=== PATIENT | female | born 1950 | race American Indian/Alaskan Native ===

== ENCOUNTER 2016-08-15 13:44 | Emergency (ER) | payer MEDICARE, MEDICAID ==
[2016-08-15 14:15] VITALS: BP 133/58
--- NOTE | 2016-08-15 16:00 | EDM.PDOC ---
ED HPI EYE COMPLAINT - General Chief Complaint: Eye Problems Stated Complaint: LEFT EYE VISUAL DISTURBANCE Time Seen by Provider: 08/15/16 15:55 Source: Reports: Patient, RN notes reviewed History Limitations: Reports: No limitations - History of Present Illness INITIAL COMMENTS - FREE TEXT/NARRATIVE: 65-year-old female presents emergency department day complaint of decreased vision in her left eye she is also having pain below her left side that radiates to the back of her left ear she describes the vision as intermittent with spots, does have a history of retinal hemorrhage - Related Data Allergies/ADRs: Allergies celecoxib [From Celebrex] Allergy (Verified 08/15/16 14:04) Cannot Remember codeine Allergy (Verified 08/15/16 14:04) Nausea and Vomiting metoclopramide HCl [From Reglan] Allergy (Verified 08/15/16 14:04) Cannot Remember metronidazole [From Flagyl] Allergy (Verified 08/15/16 14:04) Cannot Remember morphine Allergy (Verified 08/15/16 14:04) Cannot Remember nitrofurantoin [From Macrobid] Allergy (Verified 08/15/16 14:04) Cannot Remember nitrofurantoin macrocrystalline [From Macrobid] Allergy (Verified 08/15/16 14:04 ) Cannot Remember Penicillins Allergy (Verified 08/15/16 14:04) Cannot Remember rofecoxib Allergy (Verified 08/15/16 14:04) Cannot Remember shellfish derived Allergy (Verified 08/15/16 14:04) Cannot Remember Sulfa (Sulfonamide Antibiotics) Allergy (Verified 08/15/16 14:04) Hives Home Meds: Ambulatory Orders Medication Instructions Recorded Confirmed Carvedilol [Coreg] 1 tab PO BID 11/09/15 08/15/16 Clopidogrel [Plavix] 1 tab PO DAILY 11/09/15 08/15/16 Simvastatin [Zocor] 20 mg PO DAILY 11/09/15 08/15/16 cloNIDine [Catapres] 1 tab PO BID 11/09/15 08/15/16 hydrOXYzine HCl [hydrOXYzine] 25 mg PO QID PRN 11/09/15 08/15/16 Calcium Carbonate [Tums] 1,000 mg PO TID 08/15/16 08/15/16 Folic Acid/Vitamin B Comp W-C 1 tab PO DAILY 08/15/16 08/15/16 [Dialyvite] traMADol [Ultram] 1 tab PO BID PRN 08/15/16 08/15/16 Past Medical History HEENT History: Reports: Cataract Respiratory History: Reports: COPD Genitourinary History: Reports: Dialysis, UTI, recurrent Musculoskeletal History: Reports: Fracture Neurological History: Reports: TIA Endocrine/Metabolic History: Reports: Diabetes, type II - Infectious Disease History Infectious Disease History: Reports: Chicken pox, Measles, Mumps - Past Surgical History Cardiovascular Surgical History: Reports: Coronary artery bypass, Coronary artery stent Musculoskeletal Surgical History: Reports: Arthroscopic knee Social & Family History - Tobacco Use Smoking Status *Q: Never Smoker Second Hand Smoke Exposure: No - Caffeine Use Caffeine Use: Reports: Coffee - Recreational Drug Use Recreational Drug Use: No ED ROS GENERAL - Review of Systems Review Of Systems: See Below Constitutional: Reports: no symptoms HEENT: Reports: Ear pain, Eye pain Respiratory: Reports: No Symptoms Cardiovascular: Reports: No symptoms GI/Abdominal: Reports: No symptoms : Reports: no symptoms Musculoskeletal: Reports: no symptoms Skin: Reports: no symptoms Neurological: Reports: No Symptoms ED EXAM GENERAL W FULL EYE - Physical Exam Exam: See Below Exam Limited By: No limitations General Appearance: alert, WD/WN, no apparent distress Eye Exam: left eye: normal fundi (Could not appreciate the optic disc), vision changes, bilateral eye: EOMI, normal inspection, PERRL Visual acuity (L) 20/: 200 With Correction: No Eyelids: bilateral: normal appearance Conjunctiva & Sclera: bilateral: normal appearance Extraocular Movements: bilateral: intact Pupillary Size: bilateral: 3 mm Pupillary Reaction: bilateral: brisk Anterior Chamber: bilateral: normal appearance Posterior Chamber: left: normal funduscopic (Could not appreciate optic disc) Ears: normal external exam, normal canal, hearing grossly normal, normal TMs Nose: normal inspection, normal mucosa, no blood Throat/Mouth: Normal inspection, Normal lips, Normal teeth, Normal gums, Normal oropharynx, Normal voice, No airway compromise Head: atraumatic, normocephalic Neck: normal inspection, supple, non-tender, full range of motion Respiratory/Chest: no respiratory distress, lungs clear, normal breath sounds, no accessory muscle use Cardiovascular: regular rate, rhythm, no murmur GI/Abdominal: soft, non tender Course - Vital Signs Last Recorded V/S: Last Vital Signs Temp 96.6 F 08/15/16 14:06 Pulse 55 L 08/15/16 14:06 Resp 18 08/15/16 14:06 BP 133/58 L 08/15/16 14:06 Pulse Ox 94 L 08/15/16 14:06 Departure - Departure Time of Disposition: 16:12 Disposition: DC/Tfer to Acute Hospital 02 Condition: fair Clinical Impression: Vision changes Forms: ED Department Discharge Additional Instructions: Please report to the [facility] eye clinic [id number] to the [facility] [address] cell phone number of Dr. Merino [phone] - Assessment/Plan Plan: Assessment Acuity = acute Site and laterality = change in vision left eye palpated patient with diabetes and end-stage renal disease on dialysis Etiology = unclear etiology Manifestations = loss of vision Location of injury = home Lab values = none Plan Called discussed case with Dr. 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 This note was dictated using [employer] voice recognition software please call with any questions.
== END 2016-08-15 16:24 ==
LOC: JP.ED 13:44
DX: H53.9 Unspecified visual disturbance (principal); J44.9 Chronic obstructive pulmonary disease, unspecified; Z87.440 Personal history of urinary (tract) infections; E11.9 Type 2 diabetes mellitus without complications; Z95.1 Presence of aortocoronary bypass graft; Z88.8 Allergy status to other drugs, medicaments and biological substances; Z88.0 Allergy status to penicillin; Z88.2 Allergy status to sulfonamides; Z79.899 Other long term (current) drug therapy; Z86.73 Personal history of transient ischemic attack (TIA), and cerebral infarction without residual deficits; Z91.013 Allergy to seafood; Z88.5 Allergy status to narcotic agent
CPT/HCPCS: 99283; 99285

== ENCOUNTER 2017-04-30 21:38 | Emergency (ER) | payer MEDICARE, MEDICAID ==
--- NOTE | 2017-04-30 22:22 | EDM.PDOC ---
ED HPI GENERAL MEDICAL PROBLEM - General Chief Complaint: Genitourinary Problem Stated Complaint: NOT FEELING WELL Time Seen by Provider: 04/30/17 22:00 Source of Information: Reports: Patient, Family History Limitations: Reports: No Limitations - History of Present Illness INITIAL COMMENTS - FREE TEXT/NARRATIVE: 66-year-old female on chronic dialysis fistula dialysis run on Monday and now she's not feeling well. She was hoping to get dialysis tomorrow but discovered tomorrow was a government holiday, she receives dialysis at a government facility. She doesn't think she can wait till Monday. Onset: Gradual (Over the past 2-3 days) Severity: Moderate Associated Symptoms: Reports: Malaise, Weakness. Denies: Fever/Chills, Headaches - Related Data Allergies Allergy/AdvReac Type Severity Reaction Status Date / Time celecoxib [From Celebrex] Allergy Cannot Verified 04/30/17 22:24 Remember codeine Allergy Nausea and Verified 04/30/17 22:24 Vomiting metoclopramide HCl Allergy Cannot Verified 04/30/17 22:24 [From Reglan] Remember metronidazole [From Flagyl] Allergy Cannot Verified 04/30/17 22:24 Remember morphine Allergy Cannot Verified 04/30/17 22:24 Remember nitrofurantoin Allergy Cannot Verified 04/30/17 22:24 [From Macrobid] Remember nitrofurantoin Allergy Cannot Verified 04/30/17 22:24 macrocrystalline Remember [From Macrobid] Penicillins Allergy Cannot Verified 04/30/17 22:24 Remember rofecoxib Allergy Cannot Verified 04/30/17 22:24 Remember shellfish derived Allergy Cannot Verified 04/30/17 22:24 Remember Sulfa (Sulfonamide Allergy Hives Verified 04/30/17 22:24 Antibiotics) Home Meds: Home Meds Carvedilol [Coreg] 1 tab PO BID 11/09/15 [History] Clopidogrel [Plavix] 1 tab PO DAILY 11/09/15 [History] Simvastatin [Zocor] 20 mg PO DAILY 11/09/15 [History] cloNIDine [Catapres] 1 tab PO BID 11/09/15 [History] hydrOXYzine HCl [hydrOXYzine] 25 mg PO QID PRN 11/09/15 [History] Calcium Carbonate [Tums] 1,000 mg PO TID 08/15/16 [History] Losartan [Cozaar] 04/30/17 [History] Past Medical History HEENT History: Reports: Cataract Respiratory History: Reports: COPD Genitourinary History: Reports: Dialysis, UTI, Recurrent Musculoskeletal History: Reports: Fracture Neurological History: Reports: TIA Endocrine/Metabolic History: Reports: Diabetes, Type II - Infectious Disease History Infectious Disease History: Reports: Chicken Pox, Measles, Mumps - Past Surgical History Cardiovascular Surgical History: Reports: Coronary Artery Bypass, Coronary Artery Stent Musculoskeletal Surgical History: Reports: Arthroscopic Knee Social & Family History - Tobacco Use Smoking Status *Q: Never Smoker Second Hand Smoke Exposure: No - Caffeine Use Caffeine Use: Reports: Coffee - Recreational Drug Use Recreational Drug Use: No ED ROS GENERAL - Review of Systems Review Of Systems: See Below Constitutional: Reports: Malaise, Weakness. Denies: Fever, Chills HEENT: Reports: No Symptoms Respiratory: Denies: Shortness of Breath Cardiovascular: Denies: Chest Pain, Palpitations GI/Abdominal: Reports: Nausea. Denies: Vomiting Neurological: Reports: Dizziness ED EXAM, RENAL/ - Physical Exam Exam: See Below Exam Limited By: No Limitations General Appearance: Alert, No Apparent Distress Eye Exam: Bilateral Eye: EOMI, Normal Inspection Respiratory/Chest: No Respiratory Distress, Lungs Clear Cardiovascular: Regular Rate, Rhythm Neurological: Alert, Oriented Psychiatric: Flat Affect Skin Exam: Warm, Dry Course - Vital Signs Last Recorded V/S: Last Vital Signs Temp 96.3 F 04/30/17 23:27 Pulse 52 L 04/30/17 23:27 Resp 18 04/30/17 23:27 BP 177/55 H 04/30/17 23:27 Pulse Ox 98 04/30/17 23:27 - Orders/Labs/Meds Labs: Laboratory Tests 04/30/17 04/30/17 Range/Units 22:25 22:25 WBC 7.8 (4.5-11.0) K/uL RBC 3.17 L (3.30-5.50) M/uL Hgb 8.8 L D (12.0-15.0) g/dL Hct 26.5 L (36.0-48.0) % MCV 84 (80-98) fL MCH 28 (27-31) pg MCHC 33 (32-36) % Plt Count 237 (150-400) K/uL Neut % (Auto) 70 H (36-66) % Lymph % (Auto) 20 L (24-44) % Rabun % (Auto) 9 H (2-6) % Eos % (Auto) 1 L (2-4) % Baso % (Auto) 0 (0-1) % Sodium 134 L (140-148) mmol/L Potassium 5.4 H (3.6-5.2) mmol/L Chloride 92 L (100-108) mmol/L Carbon Dioxide 25 (21-32) mmol/L Anion Gap 22.4 H (5.0-14.0) mmol/L BUN 75 H (7-18) mg/dL Creatinine 8.8 H* D (0.6-1.0) mg/dL Est Cr Clr Drug Dosing 5.43 mL/min Estimated GFR (MDRD) 5 L (>60) Glucose 122 H (74-106) mg/dL Calcium 8.6 (8.5-10.1) mg/dL - Re-Assessments/Exams Free Text/Narrative Re-Assessment/Exam: 04/30/17 22:28 CBC and BMP were obtained. 04/30/17 23:11 BMP revealed a BUN of 75, creatinine 8.8 and potassium of 5.4. [facility] was called and the hospitalist service kindly accepted the patient. She 'll be transferred by EMS as no family members with the patient are able to take her. Departure - Departure Time of Disposition: 23:38 Disposition: DC/Tfer to Other Condition: Fair Clinical Impression: Renal failure Qualifiers: Renal failure chronicity: acute on chronic Acute renal failure type: unspecified Chronic kidney disease stage: on chronic dialysis Qualified Code(s) : N17.9 - Acute kidney failure, unspecified - Discharge Information Referrals: PCP,None [Primary Care Provider] - Forms: ED Department Discharge Care Plan Goals: Patient is to be transferred to [facility] for dialysis treatment.
[2017-04-30 23:28] VITALS: BP 177/55
== END 2017-04-30 23:41 | disposition other institution (70) ==
LOC: JP.ED 21:38
DX: E11.22 Type 2 diabetes mellitus with diabetic chronic kidney disease (principal); N17.9 Acute kidney failure, unspecified; N18.6 End stage renal disease; Z88.5 Allergy status to narcotic agent; Z88.8 Allergy status to other drugs, medicaments and biological substances; Z88.2 Allergy status to sulfonamides; Z91.013 Allergy to seafood; Z88.0 Allergy status to penicillin; Z79.899 Other long term (current) drug therapy; Z99.2 Dependence on renal dialysis
CPT/HCPCS: 36415; 80048; 85025; 99284